=== PATIENT | male | born 1965 | race Caucasian/White ===

== ENCOUNTER 2016-04-11 15:24 | Observation (INO) | payer OTHER ==
[2016-04-11] MEDS ORDERED: NS 0.9% 1000 ML* 2,000 ML IV ONE (15:35)
[2016-04-11] MEDS ORDERED: Naloxone* 0.4 MG/ML 1 ML VIAL IV PUSH ONE (15:49)
[2016-04-11 15:57] LABS: Hematocrit 47 % (42-52); Hemoglobin 15.6 g/dl (14.0-18.0); Mean Corpuscular HGB Conc 34 g/dl (31-36); Mean Corpuscular Hemoglobin 31 pg (27-31); Mean Corpuscular Volume 94 fL (80-94); Mean Platelet Volume 7 um3 (7.4-10.4); Red Blood Count 4.96 10^6/ul (4.0-5.4); Red Cell Distribution Width 15 % (10.5-15); White Blood Count 13.8 10^3/ul (3.5-10.8)
[2016-04-11 15:58] LABS: Add Diff/Slide Review? Slide Review Added; Comments Flag Yes
[2016-04-11 16:15] LABS: Alcohol < 10 mg/dL (<10); Ammonia 161 mol/L (16-53)
[2016-04-11 16:17] LABS: ALT 115 U/L (7-52); AST 66 U/L (13-39); Albumin 4.1 g/dL (3.2-5.2); Alkaline Phosphatase 96 U/L (34-104); Anion Gap 16 mmol/L (2-11); BUN/Creatinine Ratio 8.2 (8-20); Blood Urea Nitrogen 15 mg/dL (6-24); CO2 Carbon Dioxide 18 mmol/L (22-32); Calcium 9.6 mg/dL (8.6-10.3); Chloride 104 mmol/L (101-111); EGFR African American 51.4 (>60); Globulin 3.7 g/dL (2-4); Glucose 143 mg/dL (70-100); Lipase 16 U/L (11.0-82.0); Magnesium 2.9 mg/dL (1.9-2.7); Sodium 138 mmol/L (133-145); Total Protein 7.8 g/dL (6.4-8.9)
[2016-04-11 16:20] LABS: B Type Natriuretic Peptide 34 pg/mL
[2016-04-11 16:21] LABS: Troponin I 0.09 ng/mL (<0.04)
--- NOTE | 2016-04-11 16:37 | RAD ---
Indication: Syncope. Comparison: May 09, 2015 CT. Technique: Upright AP 1605 hours Report: Patchy alveolar consolidation at the LEFT lung base may represent atelectasis or pneumonia. Clear pleural spaces. Negative for pneumothorax. The heart, pulmonary vasculature, and mediastinal contours are unremarkable. IMPRESSION: Patchy alveolar consolidation at the LEFT lung base may represent atelectasis or pneumonia.
--- NOTE | 2016-04-11 16:57 | RAD ---
Indication: Syncopal episode. Comparison: No relevant prior exams available [place] [facility] [facility] Technique: Noncontrast CT vertex of skull through foramen magnum. Report: The sulci, ventricles, and basal cisterns are normal for age. Bey matter white matter differentiation is preserved without evidence for edema. No intra or extra axial hemorrhage, mass, or fluid collection detected. Unremarkable orbital contents. Unremarkable calvarium and skull base. Unremarkable scalp. Partially visualized mucous retention cyst or polyp in the floor of the RIGHT maxillary sinus. Negative for paranasal sinus fluid levels. Clear mastoid air spaces. IMPRESSION: No acute intracranial process evident.
[2016-04-11 17:36] LABS: Urine Bacteria Absent (Absent); Urine Bilirubin Negative (Negative); Urine Glucose Negative (Negative); Urine Nitrite Negative (Negative)
[2016-04-11 17:46] LABS: Benzodiazepine Urine Screen Presumptive Positive (None Detect)
[2016-04-11] MEDS ORDERED: Levofloxacin 750 MG IVPREMIX(* 750 MG/150 ML BAG IVPB ONE (18:02)
--- NOTE | 2016-04-11 18:15 | ED ---
Jevon Fraga Adam, scribed for Jus Kim MD on 04/11/16 at 1539 . Complex/Multi-Sys Presentation - HPI Summary HPI Summary: Pt is a 50 year old male who had a syncopal episode earlier today, reportedly while he was sitting at a table with his family. In the ED he presents with fever (101.6 F) and tachcardia (132). EMS report that the pt's pupils were pinpoint when they got to him and they state that it took approximately 15 minutes to convince the pt to come to the ED. He kept trying to walk away and stumbled repeatedly. The pt states that he does not remember the details of his syncopal episode. He states that he has been having watery diarrhea for the past 2 weeks though. He denies blood but reports positive mucous. He also reports some abdominal cramping which is alleviated by diarrhea. He does not have any Hx of symptoms like this. Pt denies any recent abx, travel, or contact with sick people. Pt has a Hx of EtOH abuse and drug overdose. He told the nurse that he used heroin 3 days ago and drank "a sip" of alcohol today (told MD that he has not had alcohol for nearly 1 year). Pt is on Klonopin and Gabapentin. Surgical Hx of TKR x2, appy, and tonsillectomy. FMHx of alcoholism and cancer. - History Of Current Complaint Time Seen by Provider: 04/11/16 15:35 Hx Obtained From: Patient, EMS Onset/Duration: Sudden Onset, Lasting Hours, Still Present Timing: Constant Severity Currently: Mild Severity Initially: Moderate Associated Signs And Symptoms: Positive: Syncope, Diarrhea, Abdominal Pain, Fever - Allergies/Home Medications Allergies/Adverse Reactions: Allergies Allergy/AdvReac Type Severity Reaction Status Date / Time Ibuprofen Allergy Rash Verified 05/09/15 13:32 Penicillins Allergy Rash Verified 05/09/15 13:32 PMH/Surg Hx/FS Hx/Imm Hx Psychiatric History: Reports: Hx Substance Abuse - Surgical History Surgery Procedure, Year, and Place: TKR x2, appy, tonsillectomy - Family History Known Family History: Positive: Other - Alcoholism, cancer - Social History Alcohol Use: Rare Hx Substance Use: Yes Substance Use Type: Reports: Heroin, Marijuana Hx Tobacco Use: Yes Smoking Status (MU): Current Some Day Smoker Review of Systems Positive: Fever Positive: Other - Pinpoint pupils Positive: Abdominal Pain, Diarrhea Positive: Syncope All Other Systems Reviewed And Are Negative: Yes Physical Exam - Summary Physical Exam Summary: VITAL SIGNS: Reviewed. GENERAL: Patient is an obese male who is lying comfortable in the stretcher. He seems very somnolent. Patient is not in any acute respiratory distress. HEAD AND FACE: No signs of trauma. No ecchymosis, hematomas or skull depressions. No sinus tenderness. EYES: Pin point pupils. EARS: Hearing grossly intact. Ear canals and tympanic membranes are within normal limits. MOUTH: Oropharynx within normal limits. NECK: Supple, trachea is midline, no adenopathy, no JVD, no carotid bruit, no c- spine tenderness, neck with full ROM. No meningeal signs, no Kernig's or brudzinskis signs. CHEST: Symmetric, no tenderness at palpation LUNGS: Clear to auscultation bilaterally. No wheezing or crackles. CVS: Regular rate and rhythm, S1 and S2 present, no murmurs or gallops appreciated. ABDOMEN: Soft, non-tender. No signs of distention. No rebound no guarding, and no masses palpated. Bowel sounds are normal. EXTREMITIES: FROM in all major joints, no edema, no cyanosis or clubbing. NEURO: Alert and oriented x 3. No acute neurological deficits. Speech is normal and follows commands. GCS: 15 SKIN: Dry and warm Triage Information Reviewed: Yes Vital Signs On Initial Exam: Initial Vitals Pulse Resp BP Pulse Ox 139 18 93/62 91 04/11/16 15:30 04/11/16 15:30 04/11/16 15:30 04/11/16 15:30 Vital Signs Reviewed: Yes Diagnostics - Vital Signs Vital Signs Pulse Resp BP Pulse Ox 04/11/16 17:00 111 19 91 04/11/16 16:00 134 29 125/71 93 04/11/16 15:49 132 17 108/57 87 04/11/16 15:44 133 15 112/55 88 04/11/16 15:30 139 18 93/62 91 - Laboratory Lab Results: Lab Results 04/11/16 04/11/16 04/11/16 Range/Units 15:50 15:50 15:50 WBC 13.8 H (3.5-10.8) 10^3/ul RBC 4.96 (4.0-5.4) 10^6/ul Hgb 15.6 (14.0-18.0) g/dl Hct 47 (42-52) % MCV 94 (80-94) fL MCH 31 (27-31) pg MCHC 34 (31-36) g/dl RDW 15 (10.5-15) % Plt Count 202 (150-450) 10^3/ul MPV 7 L (7.4-10.4) um3 Neut % (Auto) 82.3 (38-83) % Lymph % (Auto) 10.8 L (25-47) % Duval % (Auto) 6.1 (1-9) % Eos % (Auto) 0.2 (0-6) % Baso % (Auto) 0.6 (0-2) % Absolute Neuts (auto) 11.4 H (1.5-7.7) 10^3/ul Absolute Lymphs (auto) 1.5 (1.0-4.8) 10^3/ul Absolute Monos (auto) 0.8 (0-0.8) 10^3/ul Absolute Eos (auto) 0 (0-0.6) 10^3/ul Absolute Basos (auto) 0.1 (0-0.2) 10^3/ul Absolute Nucleated RBC 0.01 10^3/ul Nucleated RBC % 0.1 INR (Anticoag Therapy) (0.89-1.11) Sodium 138 (133-145) mmol/L Potassium 4.0 (3.5-5.0) mmol/L Chloride 104 (101-111) mmol/L Carbon Dioxide 18 L (22-32) mmol/L Anion Gap 16 H (2-11) mmol/L BUN 15 (6-24) mg/dL Creatinine 1.82 H (0.67-1.17) mg/dL Est GFR ( Amer) 51.4 (>60) Est GFR (Non-Af Amer) 40.0 (>60) BUN/Creatinine Ratio 8.2 (8-20) Glucose 143 H (70-100) mg/dL Lactic Acid 10.0 H* (0.5-2.0) mmol/L Calcium 9.6 (8.6-10.3) mg/dL Magnesium 2.9 H (1.9-2.7) mg/dL Total Bilirubin 0.60 (0.2-1.0) mg/dL AST 66 H (13-39) U/L ALT 115 H (7-52) U/L Alkaline Phosphatase 96 (34-104) U/L Ammonia (16-53) mol/L Troponin I 0.09 H* (<0.04) ng/mL B-Natriuretic Peptide ( - 100) pg/mL Total Protein 7.8 (6.4-8.9) g/dL Albumin 4.1 (3.2-5.2) g/dL Globulin 3.7 (2-4) g/dL Albumin/Globulin Ratio 1.1 (1-3) Lipase 16 (11.0-82.0) U/L TSH 1.30 (0.34-5.60) mcIU/mL Urine Color Urine Appearance Urine pH (5-9) Ur Specific [place] (1.010-1.030) Urine Protein (Negative) Urine Ketones (Negative) Urine Blood (Negative) Urine Nitrate (Negative) Urine Bilirubin (Negative) Urine Urobilinogen (Negative) Ur Leukocyte Esterase (Negative) Urine WBC (Auto) (Absent) Urine RBC (Auto) (Absent) Urine Bacteria (Absent) Hyaline Casts (Absent) Urine Glucose (Negative) Urine Opiates Screen (None Detect) Ur Barbiturates Screen (None Detect) Ur Phencyclidine Scrn (None Detect) Ur Amphetamines Screen (None Detect) U Benzodiazepines Scrn (None Detect) Urine Cocaine Screen (None Detect) U Cannabinoids Screen (None Detect) Serum Alcohol < 10 (<10) mg/dL 04/11/16 04/11/16 04/11/16 Range/Units 15:50 15:50 17:20 WBC (3.5-10.8) 10^3/ul RBC (4.0-5.4) 10^6/ul Hgb (14.0-18.0) g/dl Hct (42-52) % MCV (80-94) fL MCH (27-31) pg MCHC (31-36) g/dl RDW (10.5-15) % Plt Count (150-450) 10^3/ul MPV (7.4-10.4) um3 Neut % (Auto) (38-83) % Lymph % (Auto) (25-47) % Duval % (Auto) (1-9) % Eos % (Auto) (0-6) % Baso % (Auto) (0-2) % Absolute Neuts (auto) (1.5-7.7) 10^3/ul Absolute Lymphs (auto) (1.0-4.8) 10^3/ul Absolute Monos (auto) (0-0.8) 10^3/ul Absolute Eos (auto) (0-0.6) 10^3/ul Absolute Basos (auto) (0-0.2) 10^3/ul Absolute Nucleated RBC 10^3/ul Nucleated RBC % INR (Anticoag Therapy) 0.84 L (0.89-1.11) Sodium (133-145) mmol/L Potassium (3.5-5.0) mmol/L Chloride (101-111) mmol/L Carbon Dioxide (22-32) mmol/L Anion Gap (2-11) mmol/L BUN (6-24) mg/dL Creatinine (0.67-1.17) mg/dL Est GFR ( Amer) (>60) Est GFR (Non-Af Amer) (>60) BUN/Creatinine Ratio (8-20) Glucose (70-100) mg/dL Lactic Acid (0.5-2.0) mmol/L Calcium (8.6-10.3) mg/dL Magnesium (1.9-2.7) mg/dL Total Bilirubin (0.2-1.0) mg/dL AST (13-39) U/L ALT (7-52) U/L Alkaline Phosphatase (34-104) U/L Ammonia 161 H (16-53) mol/L Troponin I (<0.04) ng/mL B-Natriuretic Peptide 34 ( - 100) pg/mL Total Protein (6.4-8.9) g/dL Albumin (3.2-5.2) g/dL Globulin (2-4) g/dL Albumin/Globulin Ratio (1-3) Lipase (11.0-82.0) U/L TSH (0.34-5.60) mcIU/mL Urine Color Yellow Urine Appearance Clear Urine pH 6.0 (5-9) Ur Specific [place] 1.010 (1.010-1.030) Urine Protein 2+(100 mg/dl) H (Negative) Urine Ketones Trace H (Negative) Urine Blood 1+ H (Negative) Urine Nitrate Negative (Negative) Urine Bilirubin Negative (Negative) Urine Urobilinogen Negative (Negative) Ur Leukocyte Esterase Trace H (Negative) Urine WBC (Auto) 1+(6-10/hpf) H (Absent) Urine RBC (Auto) Trace(0-2/hpf) (Absent) Urine Bacteria Absent (Absent) Hyaline Casts Present H (Absent) Urine Glucose Negative (Negative) Urine Opiates Screen (None Detect) Ur Barbiturates Screen (None Detect) Ur Phencyclidine Scrn (None Detect) Ur Amphetamines Screen (None Detect) U Benzodiazepines Scrn (None Detect) Urine Cocaine Screen (None Detect) U Cannabinoids Screen (None Detect) Serum Alcohol (<10) mg/dL 04/11/16 Range/Units 17:20 WBC (3.5-10.8) 10^3/ul RBC (4.0-5.4) 10^6/ul Hgb (14.0-18.0) g/dl Hct (42-52) % MCV (80-94) fL MCH (27-31) pg MCHC (31-36) g/dl RDW (10.5-15) % Plt Count (150-450) 10^3/ul MPV (7.4-10.4) um3 Neut % (Auto) (38-83) % Lymph % (Auto) (25-47) % Duval % (Auto) (1-9) % Eos % (Auto) (0-6) % Baso % (Auto) (0-2) % Absolute Neuts (auto) (1.5-7.7) 10^3/ul Absolute Lymphs (auto) (1.0-4.8) 10^3/ul Absolute Monos (auto) (0-0.8) 10^3/ul Absolute Eos (auto) (0-0.6) 10^3/ul Absolute Basos (auto) (0-0.2) 10^3/ul Absolute Nucleated RBC 10^3/ul Nucleated RBC % INR (Anticoag Therapy) (0.89-1.11) Sodium (133-145) mmol/L Potassium (3.5-5.0) mmol/L Chloride (101-111) mmol/L Carbon Dioxide (22-32) mmol/L Anion Gap (2-11) mmol/L BUN (6-24) mg/dL Creatinine (0.67-1.17) mg/dL Est GFR ( Amer) (>60) Est GFR (Non-Af Amer) (>60) BUN/Creatinine Ratio (8-20) Glucose (70-100) mg/dL Lactic Acid (0.5-2.0) mmol/L Calcium (8.6-10.3) mg/dL Magnesium (1.9-2.7) mg/dL Total Bilirubin (0.2-1.0) mg/dL AST (13-39) U/L ALT (7-52) U/L Alkaline Phosphatase (34-104) U/L Ammonia (16-53) mol/L Troponin I (<0.04) ng/mL B-Natriuretic Peptide ( - 100) pg/mL Total Protein (6.4-8.9) g/dL Albumin (3.2-5.2) g/dL Globulin (2-4) g/dL Albumin/Globulin Ratio (1-3) Lipase (11.0-82.0) U/L TSH (0.34-5.60) mcIU/mL Urine Color Urine Appearance Urine pH (5-9) Ur Specific [place] (1.010-1.030) Urine Protein (Negative) Urine Ketones (Negative) Urine Blood (Negative) Urine Nitrate (Negative) Urine Bilirubin (Negative) Urine Urobilinogen (Negative) Ur Leukocyte Esterase (Negative) Urine WBC (Auto) (Absent) Urine RBC (Auto) (Absent) Urine Bacteria (Absent) Hyaline Casts (Absent) Urine Glucose (Negative) Urine Opiates Screen Presumptive positive H (None Detect) Ur Barbiturates Screen None detected (None Detect) Ur Phencyclidine Scrn None detected (None Detect) Ur Amphetamines Screen None detected (None Detect) U Benzodiazepines Scrn Presumptive positive H (None Detect) Urine Cocaine Screen Presumptive positive H (None Detect) U Cannabinoids Screen None detected (None Detect) Serum Alcohol (<10) mg/dL Result Diagrams: 04/11/16 15:50 04/11/16 15:50 Lab Statement: Any lab studies that have been ordered have been reviewed, and results considered in the medical decision making process. - Radiology CXR Radiology Interpretation Completed By: Radiologist - IMPRESSION: Patchy alveolar consolidation at the LEFT lung base may represent atelectasis or pneumonia. - CT BRAIN CT Interpretation Completed By: Radiologist - IMPRESSION: NO ACUTE INTRACRANIAL PROCESS EVIDENT. - EKG 15:20 Cardiac Rate: Tachycardia - 140 BPM EKG Rhythm: Sinus Tachycardia EKG Interpretation: No ST elevations - Additional Comments Diagnostic Additional Comments: Lactic Acid - 10.0 Troponin I - 0.09 Serum Alcohol < 10 Complex Multi-Symp Course/Dx Course Of Treatment: Pt is a 50 year old male who had a syncopal episode earlier today, reportedly while he was sitting at a table with his family. In the ED he presents with fever (101.6 F) and tachcardia (132). EMS report that the pt's pupils were pinpoint when they got to him and they state that it took approximately 15 minutes to convince the pt to come to the ED. He kept trying to walk away and stumbled repeatedly. The pt states that he does not remember the details of his syncopal episode. He states that he has been having watery diarrhea for the past 2 weeks though. He denies blood but reports positive mucous. He also reports some abdominal cramping which is alleviated by diarrhea. He does not have any Hx of symptoms like this. Pt denies any recent abx, travel, or contact with sick people. Pt has a Hx of EtOH abuse and drug overdose. He told the nurse that he used heroin 3 days ago and drank "a sip" of alcohol today (told MD that he has not had alcohol for nearly 1 year). Pt is on Klonopin and Gabapentin. Surgical Hx of TKR x2, appy, and tonsillectomy. FMHx of alcoholism and cancer. BW shows WBC count of 13.8 without bands. Anion gap is 16. CO2 is 18. Creatinine is 1.82. Glucose is 143. Lactic Acid is 10.0. Magnesium 2.9. AST 66, ALT 115. Ammonia 161. Troponin is 0.09. UA shows trace ketones and urine toxicology tested positive for opiates, benzodiazepines, and cocaine. Head CT shows no acute intracranial pathology. CXR shows patchy alveolar consolidation at the LEFT lung base that may represent atelectasis or pneumonia. In the ED course initially the pt was given IV fluids, Narcan because he had pinpoint pupils, and Levaquin for what appears to be pneumonia. At this point the pt is hemodynamically stable and A&Ox3. I discussed the case with Dr. Barksdale who accepted the pt for admission for further work-up and management. - Diagnoses Differential Diagnoses/HQI/PQRI: Cardiac Ischemia, CVA, Urinary Tract Infection , Other - PNA Provider Diagnoses: Pneumonia, Opiate overdose, Altered mental status, Elevated ammonia, Elevated troponin, rule out ACS - Physician Notifications Discussed Care Of Patient With: Hospitalist at 17:43. Patient will be admitted. Discharge - Discharge Plan Condition: Stable Disposition: ADMITTED TO [facility] Referrals: Sung Dowd MD [Medical Doctor] - The documentation as recorded by the Jevon traore Adam accurately reflects the service I personally performed and the decisions made by me, Jus Kim MD.
[2016-04-11] MEDS ORDERED: Acetaminophen TAB* 325 MG PO PRN (19:08)
[2016-04-11] MEDS ORDERED: LORazepam TAB(*) 1 MG PO SCH (20:00)
--- NOTE | 2016-04-11 20:37 | RAD ---
Indication: Acute kidney insufficiency. Comparison: None. Technique: Ultrasound kidneys and urinary bladder. Report: 11.1 x 5.6 x 4.7 cm RIGHT kidney. 13.4 x 5.5 x 5.0 cm LEFT kidney. Normal bilateral renal cortical echogenicity. 1.1 x 0.8 x 1.1 cm exophytic cortical cyst at the medial midpole of the RIGHT kidney without concern. No suspicious focal renal lesions, conspicuous stones, or hydronephrosis. Prevoid urinary bladder volume estimated at 548 mL. Bilateral ureteral jets documented. 1.9 mm bladder wall. No focal bladder lesions evident. Post void residual volume estimated at only 10 mL. Prostate volume estimated at 12 mL within normal range. IMPRESSION: Negative renal and bladder ultrasound.
[2016-04-11] MEDS: NS 0.9% 1000 ML* 1,000 ML IV SCH (20:48)
[2016-04-11] MEDS: Heparin VIAL(*) 5000 UNITS/ML VIAL (FIVE THOUSAND) SUBCUT SCH (20:51)
--- NOTE | 2016-04-12 01:17 | HP ---
HISTORY AND PHYSICAL: DATE OF ADMISSION: 04/11/16 PRIMARY CARE PHYSICIAN: Amador River MD CHIEF COMPLAINT: Syncope. HISTORY OF PRESENT ILLNESS: Mr. Fernandes is a 50-year-old male with a past medical history of osteoarthritis, status post bilateral TKA, alcohol abuse, IV heroin abuse, who presents to the hospital after an episode of syncope. The patient states that he was in his usual state of health until this morning. He states he was at his sister's house in the backyard with her and a number of friends. He does endorse some cocaine use this morning and he said he had a couple of sips of wine which is apparently the first time he has drank in over a year. The patient states that after a few sips of wine, he stood up and he felt some shortness of breath, very blurry vision and warm all over and then he passed out. He states the next thing he remembered EMS was standing above him and they were telling him that he needs to come to the hospital. He states that afterwards he felt weak. Denies any preceding chest pain, palpitations. He states that he did not lose control of his bladder or bowels and his friends and family surrounding him did not notice any seizure activity. He states that he has had some back pain after the fall and some sensation like his leg "aren' t there." However, he was able to move them with no issues. He has also been quite diaphoretic since arriving to the hospital. He denies any recent fever, chills, cough, chest pain or shortness of breath, nausea, vomiting, hematuria, hematochezia. He states he has been having good p.o. intake lately. In the emergency department, he was found to be tachycardic and slightly hypotensive. Hospitalist service was consulted to consider the patient for admission. PAST MEDICAL HISTORY: 1. Osteoarthritis. 2. Alcohol abuse. 3. Polysubstance abuse. PAST SURGICAL HISTORY: 1. TKA x2. 2. Tonsillectomy. 3. Appendectomy. ALLERGIES: IBUPROFEN, PENICILLIN. SOCIAL HISTORY: The patient is a 1-1/2 pack per day smoker for about 30 years. He reports intermittent IV heroin abuse which he states the last was a few days ago. Alcohol use, he states that he used to be a very heavy drinker, drinking 30 pack plus a a fifth of liquor a day. He states that until this morning, he has not had any alcohol and just had a few sips of wine. Reports marijuana use almost every other day and cocaine use this morning. He lives at home with his . He is not working, he collects SSI. REVIEW OF SYSTEMS: A 12-point review of systems is negative except for that as noted in the HPI. PHYSICAL EXAMINATION GENERAL: The patient is a slightly disheveled middle-aged male lying in bed in no apparent distress, smells strongly of cigarettes. VITAL SIGNS: On admission, blood pressure 93/62, heart rate of 138, respiratory rate of 18, O2 saturation 91% on room air, subsequently required small amount of oxygen. Apparently, had a fever in the hospital; however, this is not documented. HEENT: Pupils equal, round and reactive to light and accommodation. Anicteric sclera. Dry mucous membranes. NECK: No cervical adenopathy. LUNGS: Clear to auscultation bilaterally. No wheezes, rales or rhonchi. CARDIOVASCULAR: Mild tachycardia. No murmurs, gallops or rubs. ABDOMEN: Soft, nontender, nondistended. Bowel sounds positive. EXTREMITIES: No cyanosis, clubbing or edema. NEURO: The patient is alert and oriented x3. Cranial nerves II through XII intact. The patient reports some slightly diminished sensation in V1 on the left side. Also some decreased sensation in bilateral lower extremities which is the chronic issue for the patient. Strength is 5/5 throughout. BACK: The patient reports some tenderness to palpation along the paraspinal muscles in the mid thoracic spine. DIAGNOSTICS AND IMAGING: White blood cell count of 13.8, hematocrit of 47, platelets of 202, INR 0.84. Sodium of 138, potassium of 4.0, chloride of 104, carbon dioxide of 18, BUN of 15, creatinine of 1.82, baseline is around 0.8, glucose of 143, lactic acid of 10, calcium is 9.6, magnesium of 2.9, ammonia 161, alk phos 96, troponin is 0.09 , B natriuretic peptide of 34, TSH of 1.3. Urinalysis with 2+ protein, trace ketones, 1+ blood, trace leuk esterase, 1+ wbc. U-tox positive for opiates, benzodiazepines and cocaine. Serum alcohol is negative. CT of the brain shows no acute disease. Chest x-ray personally reviewed shows possible opacification in the left lung base which just may be atelectasis. ASSESSMENT AND PLAN: Syncope in a 50-year-old male with the past medical history of alcohol abuse, polysubstance abuse, and osteoarthritis. 1. Syncope. The patient's vital signs and labs could be consistent with dehydration, although the patient reports having had good p.o. intake over the past few days, received 2 L of IV fluid bolus in the ED, we will continue at 125 an hour, has elevated lactate, is concerning for possible seizure. However , the patient states that this was not witnessed by friends and family who are around him at that time although certainly does not exclude it. We will order an EEG. We will check orthostatic vital signs. We will monitor the patient on telemetry. This is also in the setting of alcohol, cocaine and possibly IV heroin. This can certainly be contributing to the patient symptoms. He did receive Narcan in the ED. We will continue to monitor the patient closely. We will also order WAM protocol, monitor for signs of alcohol withdrawal. 2. Acute kidney injury. The patient's baseline creatinine is around less than half of what it is currently. However, his BUN is normal. We will check urine lytes as well as renal ultrasound. Strict I's and O's. Recheck a BMP in the morning. Also recheck lactate. 3. Mild troponin elevation. This is in the setting of acute kidney injury, could be demand mediated. We will continue to trend the troponin's. No significant EKG changes concerning for ischemia. 4. Hyperammonemia. The patient's ammonia is quite elevated at 161. However, he does not seem encephalopathic. Hold on any lactulose with the patient's presumed dehydration. We will recheck ammonia in the morning, maybe secondary to drugs. 5. Depression. Continue on sertraline. 6. History of polysubstance abuse. As noted above, the patient's U-tox is positive for multiple drugs. We will be holding the patient's home gabapentin with his renal failure and also we will place the social work consult. 7. DVT prophylaxis. Heparin subcu. TIME SPENT: Total time spent on this admission 45 minutes with over half the time spent [id number] with the patient, counseling, and coordinating care. CC: Amador River MD* [id number]/[facility] #: [id number] ISHAN
[2016-04-12] MEDS: Heparin VIAL(*) 5000 UNITS/ML VIAL (FIVE THOUSAND) SUBCUT SCH ×2 (05:48→14:27)
[2016-04-12 05:59] LABS: Hematocrit 39 % (42-52); Hemoglobin 13.4 g/dl (14.0-18.0); Mean Corpuscular HGB Conc 34 g/dl (31-36); Mean Corpuscular Hemoglobin 32 pg (27-31); Mean Corpuscular Volume 94 fL (80-94); Mean Platelet Volume 7 um3 (7.4-10.4); Red Cell Distribution Width 15 % (10.5-15); White Blood Count 6.5 10^3/ul (3.5-10.8)
[2016-04-12 06:16] LABS: Albumin 3.3 g/dL (3.2-5.2); BUN/Creatinine Ratio 10.3 (8-20); Calcium 8.3 mg/dL (8.6-10.3); EGFR African American 86.4 (>60); EGFR Non-African American 67.2 (>60); Potassium 3.6 mmol/L (3.5-5.0); Total Bilirubin 0.7 mg/dL (0.2-1.0); Total Protein 6.3 g/dL (6.4-8.9)
[2016-04-12] MEDS: NS 0.9% 1000 ML* 1,000 ML IV SCH (08:21)
[2016-04-12] MEDS ORDERED: Thiamine TAB* 100 MG TAB PO SCH (09:00)
[2016-04-12] MEDS ORDERED: Multivitamins/Minerals TAB PO SCH (09:00)
[2016-04-12] MEDS ORDERED: Sertraline* 100 MG TAB PO SCH (09:00)
[2016-04-12] MEDS ORDERED: Folic Acid TAB* 1 MG PO SCH (09:00)
[2016-04-12] MEDS ORDERED: clonazePAM TAB(*) 1 MG PO PRN (10:03)
[2016-04-12] MEDS ORDERED: Nicotine PATCH 14 MG/24 HR* PATCH TRANSDERM SCH (13:00)
--- NOTE | 2016-04-12 13:05 | DCNOTE ---
Patient seen this afternoon. No complaints other than lack of sleep. No recurrent symptoms. Tele unremarkable. On exam, RRR, s1 and s2 present, no m/g/r, abd soft, NTND, BS+, lungs with some mild wheezing, no LE edema EEG pending read, if normal will discharge home. Encouraged to stop using illicit drugs. Will f/u with PCP.
[2016-04-12 15:33] VITALS: BP 144/74
--- NOTE | 2016-04-12 15:33 | EEG ---
DATE OF STUDY: 04/12/2016. He is an inpatient. STUDY PERFORMED: Electroencephalogram REFERRING PROVIDER: Dr. Basilio Barksdale. CLINICAL HISTORY: Episode of loss of consciousness, possible seizure. The patient had been using c ocaine and alcohol at the time. CURRENT MEDICATIONS: Lorazepam, Sertraline, vitamins. EEG DESCRIPTION: This 16-channel EEG is remarkable for background activity consisting of an alpha r hythm in the occipital derivations at about nine cycles per second, which is symmetric. Moderate vo ltage bifrontal beta rhythms are noted and are symmetric. Occasional posterior sharp transients are seen, but there are no phase reversals. The patient is clinically awake. Movement artifact is not ed occasionally. The patient does not appear to drowse or sleep during the recording. Activation pr ocedures are not attempted. There are no focal, lateralized, or epileptiform abnormalities. INTERPRETATION: Normal awake EEG. [id number]/[facility] #: [id number]
[2016-04-12] MEDS ORDERED: Gabapentin CAP(*) 300 MG PO SCH (21:00)
--- NOTE | 2016-04-13 03:20 | DS ---
DISCHARGE SUMMARY: DATE OF ADMISSION: 04/11/16 DATE OF DISCHARGE: 04/12/16 PRIMARY CARE PHYSICIAN: Dr. Amador River. PRINCIPAL DISCHARGE DIAGNOSES: 1. Syncope. 2. Lactic acidosis. 3. Acute kidney injury. 4. Hyperammonemia. 5. Polysubstance abuse. SECONDARY DIAGNOSIS: Osteoarthritis. STUDIES DONE DURING HOSPITALIZATION: CT of the brain without contrast, impression: No acute intracranial process evident. Chest x-ray, impression: Patchy alveolar consolidation at the left lung base, may represent atelectasis or pneumonia. Renal ultrasound and bladder, impression: Negative renal and bladder ultrasound. HISTORY OF PRESENT ILLNESS AND HOSPITAL SUMMARY: Please see my full history and physical for full details. Briefly, Mr. Fernandes is a 50-year-old man with past medical history as above who presented to the hospital after an episode of syncope. The patient states he "relapsed" the morning of admission and used some cocaine and only states he had a few sips of wine which was apparently the first time he drank in over a year. The patient states he stood up and was leaving when he started to feel short of breath, warm all over, and blurry vision. He subsequently passed out. He states the next thing he remembered EMS and friends were standing over him. Apparently, there was no seizure like activity witnessed. The patient reports any preceding chest pain or palpitations. He was brought to the hospital, found to be quite diaphoretic. He had an elevated lactate of 10 and minimally elevated troponin and elevated creatinine indicative of YECENIA and ammonia of 161. The patient was started on aggressive fluid hydration as his U-tox was positive for opiates, benzodiazepines, and cocaine. He was monitored on telemetry with no acute events. Imaging was done as above that was largely negative. EKG showed no ischemic changes. He had a renal ultrasound that was negative. The following morning, the patient felt well. His renal dysfunction resolved. His lactic acid was normal and his ammonia had decreased significantly to 58. An EEG was done, which was unremarkable. Unclear exactly what caused the patient's symptoms, could be vasovagal, could be related to his drug use. He will be discharged home with no medication changes. The patient should follow up with his PCP as an outpatient. TIME SPENT: Total time spent on this discharge 45 minutes. This is just a summary of hospitalization. Please see the full medical record for further details. CC: Dr. Amador River* [id number]/[facility] #: [id number] [facility] HOSPITALWillam
[2016-04-13] MEDS ORDERED: Nicotine Patch Removal NOTE PATCH OFF SCH (21:00)
== END 2016-04-12 16:16 | disposition home or self-care (01) ==
LOC: ED 15:24 → MEDTELE 17:53
PROVIDERS: ADMIT Hospitalist; ATTEND Hospitalist
DX: R55 Syncope and collapse (principal); E87.2 Acidosis; N17.9 Acute kidney failure, unspecified; E72.20 Disorder of urea cycle metabolism, unspecified; R74.8 Abnormal levels of other serum enzymes; F32.9 Major depressive disorder, single episode, unspecified; F10.10 Alcohol abuse, uncomplicated; F11.10 Opioid abuse, uncomplicated; F14.10 Cocaine abuse, uncomplicated; F13.10 Sedative, hypnotic or anxiolytic abuse, uncomplicated; R00.0 Tachycardia, unspecified; F10.20 Alcohol dependence, uncomplicated; Z88.0 Allergy status to penicillin; Z88.6 Allergy status to analgesic agent; F17.210 Nicotine dependence, cigarettes, uncomplicated; R10.9 Unspecified abdominal pain; R19.7 Diarrhea, unspecified
CPT/HCPCS: 36415; 70450; 71010; 76770; 80053; 80307; 80320; 81003; 81015; 82140; 82570; 83605; 83690; 83735; 83880; 84145; 84300; 84443; 84484; 85025; 85610; 87086; 93005; 95816; 96361; 96365; 96372; 96375; 99283; 99406; A9270-GY; G0378; G0480; J1644; J2310

== ENCOUNTER 2017-03-28 18:12 | Emergency (ER) | payer OTHER ==
[2017-03-28 19:29] LABS: ABS Basophils 0 10^3/ul (0-0.2); ABS Eosinophils 0.1 10^3/ul (0-0.6); ABS Lymphocytes 1.1 10^3/ul (1.0-4.8); ABS Monocytes 0.5 10^3/ul (0-0.8); ABS Neutrophils 5.7 10^3/ul (1.5-7.7); ABS Nucleated RBC 0 10^3/ul; Eosinophil % 0.7 % (0-6); Hematocrit 43 % (42-52); Hemoglobin 14.7 g/dl (14.0-18.0); Lymphocyte % 15.2 % (25-47); Mean Corpuscular HGB Conc 35 g/dl (31-36); Mean Corpuscular Hemoglobin 33 pg (27-31); Mean Corpuscular Volume 95 fL (80-94); Mean Platelet Volume 7 um3 (7.4-10.4); Nucleated Red Blood Cells % 0; Platelet Count 235 10^3/ul (150-450); Red Cell Distribution Width 14 % (10.5-15); White Blood Count 7.4 10^3/ul (3.5-10.8)
[2017-03-28 19:48] LABS: EGFR Non-African American 93.3 (>60)
[2017-03-28 21:19] LABS: Urine Appearance Cloudy; Urine Blood 1+ (Negative); Urine Color Yellow; Urine Ketones Trace (Negative); Urine Protein 2+(100 mg/dL) (Negative); Urine Specific Gravity 1.016 (1.010-1.030); Urine Urobilinogen Negative (Negative)
--- NOTE | 2017-03-28 21:52 | ED ---
Sudarshan Fraga Jennifer, scribed for Jesse Arceo MD on 03/28/17 at 1843 . Substance Abuse/Use - HPI Summary HPI Summary: The patient is a 51 year old male who presents to the ED with overdose of heroin today. The patient had nine beers today before using heroine. He reports that he hasnt done heroin in two years. His gave me two shots of Narcan, and he received three more on the way to the ED. The patient describes that he has been stressed, overwhelmed, and frustrated recently because he is being evicted from his home by April 11. He reports that he just gave up today and has been suffering from PTSD. The patient adds that he has a migraine today that used to occur on a weekly basis. - History Of Current Complaint Chief Complaint: EDOverdose Stated Complaint: OVERDOSE Time Seen by Provider: 03/28/17 18:35 Hx Obtained From: Patient Ingestion History: Type/Name Of Drug - heroin, beer Timing Of Abuse: Recent Cessation For A Period Of - two years Severity Initially: Mild Severity Currently: Mild Character: Other - Overwhelmed, stressed, frustrated Aggravating Factor(s): Nothing Alleviating Factor(s): Nothing Related Hx: Recent Stressors - Getting evicted from home and will be homeless. Reports that he wants to leave [place], Drug/Alcohol Last Used @ - Had nine beers earlier today, time unknown - Allergies/Home Medications Allergies/Adverse Reactions: Allergies Allergy/AdvReac Type Severity Reaction Status Date / Time MS Ibuprofen [Ibuprofen] Allergy Rash Verified 05/09/15 13:32 MS Penicillins [Penicillins] Allergy Rash Verified 05/09/15 13:32 Home Medications: Home Medications NK [No Home Medications Reported] 03/28/17 [History Confirmed 03/28/17] PMH/Surg Hx/FS Hx/Imm Hx Musculoskeletal History: Reports: Other Musculoskeletal History - Bilateral Total Knee Replacement Neurological History: Reports: Other Neuro Impairments/Disorders - "black outs" Psychiatric History: Reports: Hx Post Traumatic Stress Disorder, Hx Substance Abuse, Other Psychiatric Issues/Disorders - substance abuse - Surgical History Surgery Procedure, Year, and Place: TKR x2, appy, tonsillectomy Hx Anesthesia Reactions: No - Immunization History Date of Tetanus Vaccine: up to date Date of Influenza Vaccine: 02/2016 Infectious Disease History: No Infectious Disease History: Reports: 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 Denies: Traveled Outside the [place] in Last 30 Days - Family History Known Family History: Positive: Other - Alcoholism, cancer - Social History Alcohol Use: Rare Hx Substance Use: Yes Substance Use Type: Reports: Heroin, Marijuana Substance Use Comment - Amount & Last Used: 2 bowls pot daily Hx Tobacco Use: Yes Smoking Status (MU): Current Some Day Smoker Type: Cigarettes Amount Used/How Often: 1/2 ppd Length of Time of Smoking/Using Tobacco: 30 years Have You Smoked in the Last Year: Yes Review of Systems Negative: Fever Positive: Other - overdosed on heroin, stressed, frustrated All Other Systems Reviewed And Are Negative: Yes Physical Exam - Summary Physical Exam Summary: Appearance: The patient is well-nourished in no acute distress and in no acute pain. Skin: The skin is warm and dry and skin color reflects adequate perfusion. HEENT: ~The head is normocephalic and atraumatic. The pupils are equal and reactive. The conjunctivae are clear and without drainage. ~Nares are patent and without drainage. ~Mouth reveals moist mucous membranes and the throat is without erythema and exudate. ~The external ears are intact. The ear canals are patent and without drainage. The tympanic membranes are intact. Neck: the neck is supple with full range of motion and non-tender. There are no carotid bruits. ~There is no neck vein distension. Respiratory: Chest is non-tender. ~Lungs are clear to auscultation and breath sounds are symmetrical and equal. Cardiovascular: Heart is regular rate and rhythm. ~There is no murmur or rub auscultated. ~~There is no peripheral edema and pulses are symmetrical and equal. Abdomen: The abdomen is soft and non-tender. ~There are normal bowel sounds heard in all four quadrants and there is no organomegaly palpated. Musculoskeletal: There is no back tenderness noted. ~Extremities are non-tender with full range of motion. ~There is good capillary refill. ~There is no peripheral edema or calf tenderness elicited. Neurological: Patient is alert and oriented to person, place and time. ~The patient has symmetrical motor strength in all four extremities. ~Cranial nerves are grossly intact. Deep tendon reflexes are symmetrical and equal in all four extremities. Psychiatric: The patient has an appropriate affect and does not exhibit any anxiety or depression. Triage Information Reviewed: Yes Vital Signs On Initial Exam: Initial Vitals Temp Pulse Resp BP Pulse Ox 98.5 F 93 15 122/72 94 03/28/17 18:22 03/28/17 18:22 03/28/17 18:22 03/28/17 18:22 03/28/17 18:22 Vital Signs Reviewed: Yes Diagnostics - Vital Signs Vital Signs Temp Pulse Resp BP Pulse Ox 03/28/17 18:22 98.5 F 93 15 122/72 94 - Laboratory Lab Results: Lab Results 03/28/17 03/28/17 03/28/17 Range/Units 19:13 19:13 19:13 WBC 7.4 (3.5-10.8) 10^3/ul RBC 4.50 (4.0-5.4) 10^6/ul Hgb 14.7 (14.0-18.0) g/dl Hct 43 (42-52) % MCV 95 H (80-94) fL MCH 33 H (27-31) pg MCHC 35 (31-36) g/dl RDW 14 (10.5-15) % Plt Count 235 (150-450) 10^3/ul MPV 7 L (7.4-10.4) um3 Neut % (Auto) 77.3 (38-83) % Lymph % (Auto) 15.2 L (25-47) % Rice % (Auto) 6.5 (1-9) % Eos % (Auto) 0.7 (0-6) % Baso % (Auto) 0.3 (0-2) % Absolute Neuts (auto) 5.7 (1.5-7.7) 10^3/ul Absolute Lymphs (auto) 1.1 (1.0-4.8) 10^3/ul Absolute Monos (auto) 0.5 (0-0.8) 10^3/ul Absolute Eos (auto) 0.1 (0-0.6) 10^3/ul Absolute Basos (auto) 0 (0-0.2) 10^3/ul Absolute Nucleated RBC 0 10^3/ul Nucleated RBC % 0 Sodium 141 (133-145) mmol/L Potassium 3.9 (3.5-5.0) mmol/L Chloride 108 (101-111) mmol/L Carbon Dioxide 22 (22-32) mmol/L Anion Gap 11 (2-11) mmol/L BUN 14 (6-24) mg/dL Creatinine 0.87 (0.67-1.17) mg/dL Est GFR ( Amer) 119.9 (>60) Est GFR (Non-Af Amer) 93.3 (>60) BUN/Creatinine Ratio 16.1 (8-20) Glucose 105 H (70-100) mg/dL Lactic Acid 2.4 H* (0.5-2.0) mmol/L Calcium 8.9 (8.6-10.3) mg/dL Total Bilirubin 0.20 (0.2-1.0) mg/dL AST 23 (13-39) U/L ALT 16 (7-52) U/L Alkaline Phosphatase 63 (34-104) U/L Total Protein 6.8 (6.4-8.9) g/dL Albumin 3.9 (3.2-5.2) g/dL Globulin 2.9 (2-4) g/dL Albumin/Globulin Ratio 1.3 (1-3) Urine Color Urine Appearance Urine pH (5-9) Ur Specific [place] (1.010-1.030) Urine Protein (Negative) Urine Ketones (Negative) Urine Blood (Negative) Urine Nitrate (Negative) Urine Bilirubin (Negative) Urine Urobilinogen (Negative) Ur Leukocyte Esterase (Negative) Urine WBC (Auto) (Absent) Urine RBC (Auto) (Absent) Ur Squamous Epith Cells (Absent) Urine Bacteria (Absent) Urine Glucose (Negative) Salicylates < 2.50 (<30) mg/dL Urine Opiates Screen (None Detect) Acetaminophen < 15 mcg/mL Ur Barbiturates Screen (None Detect) Ur Phencyclidine Scrn (None Detect) Ur Amphetamines Screen (None Detect) U Benzodiazepines Scrn (None Detect) Urine Cocaine Screen (None Detect) U Cannabinoids Screen (None Detect) Serum Alcohol 100 H (<10) mg/dL 03/28/17 03/28/17 Range/Units 20:55 20:55 WBC (3.5-10.8) 10^3/ul RBC (4.0-5.4) 10^6/ul Hgb (14.0-18.0) g/dl Hct (42-52) % MCV (80-94) fL MCH (27-31) pg MCHC (31-36) g/dl RDW (10.5-15) % Plt Count (150-450) 10^3/ul MPV (7.4-10.4) um3 Neut % (Auto) (38-83) % Lymph % (Auto) (25-47) % Rice % (Auto) (1-9) % Eos % (Auto) (0-6) % Baso % (Auto) (0-2) % Absolute Neuts (auto) (1.5-7.7) 10^3/ul Absolute Lymphs (auto) (1.0-4.8) 10^3/ul Absolute Monos (auto) (0-0.8) 10^3/ul Absolute Eos (auto) (0-0.6) 10^3/ul Absolute Basos (auto) (0-0.2) 10^3/ul Absolute Nucleated RBC 10^3/ul Nucleated RBC % Sodium (133-145) mmol/L Potassium (3.5-5.0) mmol/L Chloride (101-111) mmol/L Carbon Dioxide (22-32) mmol/L Anion Gap (2-11) mmol/L BUN (6-24) mg/dL Creatinine (0.67-1.17) mg/dL Est GFR ( Amer) (>60) Est GFR (Non-Af Amer) (>60) BUN/Creatinine Ratio (8-20) Glucose (70-100) mg/dL Lactic Acid (0.5-2.0) mmol/L Calcium (8.6-10.3) mg/dL Total Bilirubin (0.2-1.0) mg/dL AST (13-39) U/L ALT (7-52) U/L Alkaline Phosphatase (34-104) U/L Total Protein (6.4-8.9) g/dL Albumin (3.2-5.2) g/dL Globulin (2-4) g/dL Albumin/Globulin Ratio (1-3) Urine Color Yellow Urine Appearance Cloudy Urine pH 5.0 (5-9) Ur Specific [place] 1.016 (1.010-1.030) Urine Protein 2+(100 mg/dl) H (Negative) Urine Ketones Trace H (Negative) Urine Blood 1+ H (Negative) Urine Nitrate Negative (Negative) Urine Bilirubin Negative (Negative) Urine Urobilinogen Negative (Negative) Ur Leukocyte Esterase 1+ H (Negative) Urine WBC (Auto) 3+(>20/hpf) H (Absent) Urine RBC (Auto) Trace(0-2/hpf) (Absent) Ur Squamous Epith Cells Present H (Absent) Urine Bacteria Absent (Absent) Urine Glucose Negative (Negative) Salicylates (<30) mg/dL Urine Opiates Screen Presumptive positive H (None Detect) Acetaminophen mcg/mL Ur Barbiturates Screen None detected (None Detect) Ur Phencyclidine Scrn None detected (None Detect) Ur Amphetamines Screen None detected (None Detect) U Benzodiazepines Scrn None detected (None Detect) Urine Cocaine Screen Presumptive positive H (None Detect) U Cannabinoids Screen Presumptive positive H (None Detect) Serum Alcohol (<10) mg/dL Result Diagrams: 03/28/17 19:13 03/28/17 19:13 Lab Statement: Any lab studies that have been ordered have been reviewed, and results considered in the medical decision making process. - EKG 18:52 Cardiac Rate: NL EKG Rhythm: Sinus Rhythm - 91 BPM Course/Dx - Course Course Of Treatment: Mr. Fernandes presented after taking an OD of heroin. He says he was just fed up with everything. He admits to drinking ETOH also. He apparently required several doses of narcan nd transient bag valve mask assisted respirations in the field. He is now medically cleared and awaiting a MHE. - Diagnoses Provider Diagnoses: Overdose of opiate or related narcotic Discharge - Discharge Plan Condition: Stable Disposition: OTHER Discharge Disposition Comment: Signed out to Dr. Heaton at change of shift Referrals: Perico ARDON,Amador Gonzalez [Primary Care Provider] - The documentation as recorded by the Sudarshan traore Jennifer accurately reflects the service I personally performed and the decisions made by me, Jesse Arceo MD.
[2017-03-28 22:32] VITALS: BP 131/86
== END 2017-03-28 22:31 ==
LOC: ED 18:12
DX: T40.1X1A Poisoning by heroin, accidental (unintentional), initial encounter (principal); F17.210 Nicotine dependence, cigarettes, uncomplicated; Z88.6 Allergy status to analgesic agent; Z88.0 Allergy status to penicillin
CPT/HCPCS: 36415; 80053; 80307; 80320; 80329; 81003; 81015; 83605; 85025; 87086; 93005; 99285; G0480

== ENCOUNTER 2019-07-29 06:41 | Observation (INO) ==
[2019-07-29 07:21] LABS: INR 0.86 (0.82-1.09)
[2019-07-29 07:37] LABS: ABS Lymphocytes 0.5 10^3/ul (1.0-4.8); ABS Monocytes 1.4 10^3/ul (0-0.8); Eosinophil % 0.2 %; Hematocrit 45 % (42-52); Hemoglobin 15.8 g/dL (14.0-18.0); Mean Corpuscular HGB Conc 35 g/dL (31-36); Mean Corpuscular Hemoglobin 35 pg (27-31); Mean Corpuscular Volume 101 fL (80-94); Mean Platelet Volume 6.4 fL (7.4-10.4); Platelet Count 163 10^3/uL (150-450); Red Blood Count 4.48 10^6 /uL (4.18-5.48); Red Cell Distribution Width 15 % (10-15); White Blood Count 9.6 10^3/uL (3.5-10.8)
[2019-07-29] MEDS ORDERED: NS 0.9% 1000 ml BAG 1,000 ML IV ONE (07:54)
[2019-07-29 07:55] LABS: Albumin 4.4 g/dL (3.2-5.2); Albumin/Globulin Ratio 1.5 (1-3); BUN/Creatinine Ratio 12.5 (8-20); EGFR African American 138.7 (>60); EGFR Non-African American 114.6 (>60); Potassium 3.9 mmol/L (3.5-5.0); Total Bilirubin 0.5 mg/dL (0.2-1.0); Total Protein 7.4 g/dL (6.4-8.9)
[2019-07-29] MEDS ORDERED: Morphine 4 MG/ML VIAL (1 ml) IV ONE (08:32)
[2019-07-29] MEDS ORDERED: Prochlorperazine 5 mg/ml 2 ml VIAL (10 mg) IV PRN (08:54)
[2019-07-29] MEDS ORDERED: Iohexol 350 (CONTRAST) 500 ML MDV IV ONE (09:16)
[2019-07-29] MEDS: Aspirin EC 81 mg TAB.EC (enteric coated) PO SCH (11:07)
[2019-07-29] MEDS: Heparin 5000 UNITS/ML VIAL(*) 1 ml vial SUBCUT SCH ×2 (13:53→20:26)
[2019-07-29] MEDS ORDERED: Thiamine 100 MG/ML 2 ml VIAL (200 mg) IM ONE (14:36)
[2019-07-29] MEDS: Multivitamins/Minerals TAB PO SCH (15:09)
[2019-07-29 15:40] LABS: Urine Benzodiazepine Screen Presumptive Positive (None Detect); Urine Opiates Screen Presumptive Positive (None Detect)
[2019-07-29] MEDS: LORazepam 1 mg TAB (*) PO SCH ×3 (17:31→23:35)
[2019-07-30] MEDS: LORazepam 1 mg TAB (*) PO SCH ×2 (03:15→10:13)
[2019-07-30] MEDS: Heparin 5000 UNITS/ML VIAL(*) 1 ml vial SUBCUT SCH ×2 (05:20→15:02)
[2019-07-30] MEDS ORDERED: Regadenoson 0.4 MG/5 ML SYRINGE ONE (08:56)
[2019-07-30] MEDS ORDERED: Aminophylline 25 MG/ML VIAL ONE (08:56)
[2019-07-30] MEDS: Aspirin EC 81 mg TAB.EC (enteric coated) PO SCH (10:12)
[2019-07-30] MEDS: Multivitamins/Minerals TAB PO SCH (10:13)
[2019-07-30] MEDS ORDERED: DOXYcycline 100 mg CAP (*) PO SCH (11:00)
[2019-07-30 11:44] VITALS: BP 123/67
== END 2019-07-30 14:20 | disposition home or self-care (01) ==
LOC: MEDTELE 06:41 → ED 06:41 → MEDTELE 10:26
PROVIDERS: ADMIT Internal Medicine; ATTEND Internal Medicine